=== PATIENT | female | born 1970 | race Caucasian/White ===

== ENCOUNTER 2024-01-31 11:15 | Outpatient (CLI) | payer BC ==
--- NOTE | 2024-01-31 17:02 | XRAY Report ---
PROCEDURE: Elbow 3 View RT INDICATIONS: RIGHT ELBOW FRACTURE TECHNIQUE: 3 views of the elbow were acquired. COMPARISON: 12/18/2023. FINDINGS: Bones: Ongoing healing of minimally displaced intra-articular radial head fracture. No new fracture identified. No suspicious bony lesions. Soft tissues: Decreased effusion. No suspicious soft tissue calcifications or masses. IMPRESSION: Ongoing healing of minimally displaced intra-articular radial head fracture. Reviewed by: Lety Timmons MD on 01/31/2024 5:00 PM PST Approved by: Lety Timmons MD on 01/31/2024 5:00 PM PST Station ID: [id number]
== END 2024-01-31 23:59 | disposition home or self-care (01) ==
LOC: DI.WOS 11:15
PROVIDERS: ATTEND Physician Assistant Surgical
DX: S52.121D Displaced fracture of head of right radius, subsequent encounter for closed fracture with routine healing (principal)